=== PATIENT | female | born 1960 | race Caucasian/White ===

== ENCOUNTER → 2023-11-09 07:42 | Outpatient (REF) | payer BC, SELFPAY | LOC: WDC 07:42 | PROVIDERS: ATTENDING PHYSICIAN Family Medicine Geriatric Medicine; FAMILY PHYSICIAN Family Medicine | DX: R92.8 Other abnormal and inconclusive findings on diagnostic imaging of breast (principal) | CPT/HCPCS: 76642 ==

== ENCOUNTER → 2023-11-30 06:54 | Outpatient (REF) | payer BC, SELFPAY ==
[2023-11-30 07:47] LABS: ALT (SGPT) 29 U/L (0-35); AST (SGOT) 36 U/L (14-36); Alkaline Phosphatase 98 U/L (38-126); Direct Bilirubin 0.4 mg/dl (0.0-0.4); HDL Cholesterol 74 mg/dl; LDL Cholesterol, Calculated 68 mg/dl; Total Bilirubin 0.7 mg/dl (0.2-1.3); Total Cholesterol 176 mg/dl (50-199); Total Protein 7.1 g/dl (6.3-8.2); Triglyceride 174 mg/dl (10-149); Very Low Density Lipoprotein 34 mg/dl (0-30)
== END ==
LOC: REG 06:54
PROVIDERS: ATTENDING PHYSICIAN Internal Medicine Hematology & Oncology; FAMILY PHYSICIAN Family Medicine
DX: C50.212 Malignant neoplasm of upper-inner quadrant of left female breast (principal)
CPT/HCPCS: 36415; 80061; 80076

== ENCOUNTER → 2023-12-07 06:58 | Outpatient (REF) | payer BC, SELFPAY ==
[2023-12-07 07:38] LABS: % Basophils 0.9 % (0-2); % Eosinophils 4.6 % (0-6); % Immature Granulocytes 0.2 % (0-0.5); % Lymphocytes 36.5 % (20.5-51.1); % Monocytes 10.7 % (1.7-9.3); % Neutrophils 47.1 % (42.2-75.2); Absolute Eosinophils 0.2 10^3/uL (0-0.7); Absolute Lymphocytes 1.6 10^3/uL (1.2-3.4); Absolute Monocytes 0.5 10^3/uL (0.1-0.6); Absolute Neutrophils 2.1 10^3/uL (1.4-6.5); Hematocrit 36.5 % (37.0-47.0); Hemoglobin 12.4 g/dL (12.0-16.0); Mean Corpuscular Hgb 27.9 pg (27.0-31.0); Mean Corpuscular Volume 82.2 fL (81.0-99.0); Mean Platelet Volume 8.9 fL (7.4-10.4); Nucleated Red Blood Cells % 0 %; Platelet Count 201 10^3/uL (130-400); Red Blood Cell Count 4.44 10^6/uL (4.20-5.40); Red Cell Dist. Width 13.2 % (11.5-14.5); White Blood Cell Count 4.4 10^3/uL (4.8-10.8)
[2023-12-07 08:02] LABS: Erythrocyte Sed Rate 3 mm/hour (0-20)
[2023-12-07 08:03] LABS: ALT (SGPT) 30 U/L (0-35); AST (SGOT) 33 U/L (14-36); Albumin 4.1 g/dl (3.5-5.0); Alkaline Phosphatase 92 U/L (38-126); Blood Urea Nitrogen 24 mg/dl (7-17); Calcium 10.1 mg/dl (8.4-10.2); Carbon Dioxide 26 mmol/L (22-30); Chloride 108 mmol/L (98-107); Glucose 103 mg/dl (70-99); Iron 89 ug/dl (37-170); Potassium 4.2 mmol/L (3.5-5.1); Sodium 142 mmol/L (135-145); Total Bilirubin 0.4 mg/dl (0.2-1.3); Total Protein 6.5 g/dl (6.3-8.2); eGFR > 60.00
[2023-12-07 08:17] LABS: Percent Saturation 26 % (20-50); Total Iron Binding Capacity 336 ug/dl (265-497)
[2023-12-07 08:45] LABS: TSH Reflex To Free T4 4.03 uIU/ml (0.47-4.68)
[2023-12-07 08:56] LABS: Ferritin 18.1 ng/ml (11.1-264.0)
[2023-12-07 09:20] LABS: Folate 13.1 ng/ml (2.76-20); Vitamin B12 831 pg/ml (239-931)
[2023-12-09 15:33] LABS: ANA, IgG Reflex to HEp-2 None Detected (None Detected)
== END ==
LOC: REG 06:58
PROVIDERS: ATTENDING PHYSICIAN Internal Medicine Hematology & Oncology; FAMILY PHYSICIAN Nurse Practitioner Family
DX: C50.212 Malignant neoplasm of upper-inner quadrant of left female breast (principal); I10 Essential (primary) hypertension; R53.83 Other fatigue
CPT/HCPCS: 36415; 80053; 82607; 82728; 82746; 83540; 83550; 84443; 85025; 85652; 86038

== ENCOUNTER → 2024-05-24 13:39 | Outpatient (REF) | payer BC, SELFPAY | LOC: WDC 13:39 | PROVIDERS: ATTENDING PHYSICIAN Family Medicine Geriatric Medicine; FAMILY PHYSICIAN Family Medicine | DX: Z12.31 Encounter for screening mammogram for malignant neoplasm of breast (principal); R92.8 Other abnormal and inconclusive findings on diagnostic imaging of breast | CPT/HCPCS: 76642; 77063; 77067 ==

== ENCOUNTER → 2024-07-25 07:05 | Outpatient (REF) | payer BC, SELFPAY | LOC: RAD 07:05 | PROVIDERS: ATTENDING PHYSICIAN Specialist; FAMILY PHYSICIAN Family Medicine | DX: M25.562 Pain in left knee (principal) | CPT/HCPCS: 73562; 73565 ==

== ENCOUNTER → 2025-03-31 07:11 | Outpatient (REF) | payer BC, SELFPAY ==
[2025-03-31 08:05] LABS: % Basophils 0.8 % (0-2); % Immature Granulocytes 0.2 % (0-0.5); % Monocytes 9.1 % (1.7-9.3); % Neutrophils 50.9 % (42.2-75.2); Absolute Eosinophils 0.1 10^3/uL (0-0.7); Absolute Lymphocytes 1.8 10^3/uL (1.2-3.4); Absolute Monocytes 0.4 10^3/uL (0.1-0.6); Absolute Neutrophils 2.5 10^3/uL (1.4-6.5); Hematocrit 40.1 % (37.0-47.0); Hemoglobin 13.4 g/dL (12.0-16.0); Mean Corp Hgb Conc. 33.4 g/dL (33.0-37.0); Mean Corpuscular Hgb 28.8 pg (27.0-31.0); Mean Corpuscular Volume 86.2 fL (81.0-99.0); Nucleated Red Blood Cells % 0 %; Platelet Count 229 10^3/uL (130-400); Red Blood Cell Count 4.65 10^6/uL (4.20-5.40); Red Cell Dist. Width 12.5 % (11.5-14.5); White Blood Cell Count 4.8 10^3/uL (4.8-10.8)
[2025-03-31 08:39] LABS: ALT (SGPT) 23 U/L (0-35); AST (SGOT) 27 U/L (14-36); Albumin 4.5 g/dl (3.5-5.0); Alkaline Phosphatase 104 U/L (38-126); Blood Urea Nitrogen 19 mg/dl (7-17); Calcium 10.1 mg/dl (8.4-10.2); Carbon Dioxide 26 mmol/L (22-30); Chloride 108 mmol/L (98-107); Glucose 92 mg/dl (70-99); HDL Cholesterol 69 mg/dl; LDL Cholesterol, Calculated 98 mg/dl; Potassium 4.4 mmol/L (3.5-5.1); Sodium 142 mmol/L (135-145); Total Bilirubin 0.6 mg/dl (0.2-1.3); Total Cholesterol 184 mg/dl (50-199); Total Protein 7.2 g/dl (6.3-8.2); Triglyceride 87 mg/dl (10-149); Very Low Density Lipoprotein 17 mg/dl (0-30); eGFR > 60.00
[2025-03-31 09:05] LABS: TSH Reflex To Free T4 2.88 uIU/ml (0.47-4.68)
== END ==
LOC: REG 07:11
PROVIDERS: ATTENDING PHYSICIAN Family Medicine
DX: L65.9 Nonscarring hair loss, unspecified (principal); I10 Essential (primary) hypertension; E78.00 Pure hypercholesterolemia, unspecified
CPT/HCPCS: 36415; 80053; 80061; 84443; 85025

== ENCOUNTER → 2025-05-26 07:04 | Outpatient (REF) | payer BC, SELFPAY | LOC: WDC 07:04 | PROVIDERS: ATTENDING PHYSICIAN Family Medicine Geriatric Medicine; FAMILY PHYSICIAN Family Medicine | DX: Z12.31 Encounter for screening mammogram for malignant neoplasm of breast (principal); Z12.39 Encounter for other screening for malignant neoplasm of breast; Z85.3 Personal history of malignant neoplasm of breast | CPT/HCPCS: 77063; 77067 ==